=== PATIENT | female | born 1950 | race Caucasian/White ===

== ENCOUNTER → 2017-07-11 | Outpatient (CLI) | payer OTHER ==
[~2017-07-11] VITALS: Ht 154.9 cm; Wt 107.9 kg
[~2017-07-11] MED LIST: AMARYL1 MG PO; ASPIR 8181 M1 PO; ASPIRIN EC325 MG PO; ATORVASTATIN CA10 MG PO; CELEBREX200 MG PO; Cymbalta PO; DOCUSATE SODIU100 MG PO; ENDOCET 5-3251 EACH PO; ENDOCET 7.5-321 EACH PO; Ecotrin PO; FLOVENT 11120 INHALA IH; FUROSEMIDE20 MG PO; FUROSEMIDE40 MG PO; GABAPENTIN300 MG PO; HYDROCHLOROTH12.5 M3 PO; HYDROCODON-ACE1 EAC7 PO; IRON325 M1 PO; LEVOTHYROXINE125 MCG PO; LIDOCAINE700 MG TD; LO-DOSE ASPIRIN81 M1 PO; LOSARTAN POTAS100 MG PO; LOSARTAN POTASS50 MG PO; Lasix PO; Levothroid,Synthroid PO; METFORMIN HCL500 MG PO; Maxzide 25 PO; Mevacor PO; PROAIR HFA8.5 GM IH; Proventil,Ventolin H IH; VENTOLIN HFA18 GM IH; VOLTAREN 1% GE100 GM TP; Zestril,Prinivil PO
[2017-07-11 08:46] LABS: POINT-OF-CARE METER ID UU14107333
[2017-07-11 09:59] LABS: POINT-OF-CARE METER ID UU13113819
== END | disposition home or self-care (01) ==
LOC: AMB 07:49
PROVIDERS: Internal Medicine
PROC: 0DBE8ZX Excision of Large Intestine, Via Natural or Artificial Opening Endoscopic, Diagnostic (ICD-10-PCS; principal; 2017-07-11)
DX: K57.30 Diverticulosis of large intestine without perforation or abscess without bleeding (principal); Z80.0 Family history of malignant neoplasm of digestive organs; J45.909 Unspecified asthma, uncomplicated; G25.81 Restless legs syndrome; E11.9 Type 2 diabetes mellitus without complications; Z87.891 Personal history of nicotine dependence; I10 Essential (primary) hypertension; G89.29 Other chronic pain; M54.5 Low back pain; E78.5 Hyperlipidemia, unspecified; E03.9 Hypothyroidism, unspecified; E66.01 Morbid (severe) obesity due to excess calories; Z68.42 Body mass index [BMI] 45.0-49.9, adult; Z20.1 Contact with and (suspected) exposure to tuberculosis; Z90.49 Acquired absence of other specified parts of digestive tract; Z96.659 Presence of unspecified artificial knee joint; Z90.710 Acquired absence of both cervix and uterus; Z79.82 Long term (current) use of aspirin; Z88.8 Allergy status to other drugs, medicaments and biological substances; Z91.030 Bee allergy status; Z91.040 Latex allergy status
CPT/HCPCS: 82948; 88305; 93005; J2250